=== PATIENT | female | born 1965 | race Two or more races ===

== ENCOUNTER 2018-08-31 09:30 | Day surgery (SDC) | payer OTHER | END 2018-08-31 16:09 | disposition home or self-care (01) | LOC: AMB-ENDOS 09:30 | DX: R19.4 Change in bowel habit (principal); Z12.11 Encounter for screening for malignant neoplasm of colon ==

== ENCOUNTER 2018-08-31 09:32 | Inpatient (IN) | payer OTHER ==
[~2018-08-31] VITALS: Ht 170.2 cm; Wt 71.2 kg
[2018-09-03] MEDS ORDERED: ULTRAM50 MG PO (10:19)
[2018-09-03] MEDS ORDERED: COLACE100 MG PO (10:20)
== END 2018-09-03 10:55 | DRG 743 ==
LOC: O/R 09-02 05:25 → SURH 09-02 09:45 → SURG-SUITE 09-02 10:21 → SURH 09-02 13:00 → SURG-SUITE 09-03 10:55
PROVIDERS: ADMIT Obstetrics & Gynecology
PROC: 0UT24ZZ Resection of Bilateral Ovaries, Percutaneous Endoscopic Approach (ICD-10-PCS; 2018-09-02)
PROC: 0UT74ZZ Resection of Bilateral Fallopian Tubes, Percutaneous Endoscopic Approach (ICD-10-PCS; 2018-09-02)
PROC: 0USG4ZZ Reposition Vagina, Percutaneous Endoscopic Approach (ICD-10-PCS; 2018-09-02)
PROC: 0UT94ZZ Resection of Uterus, Percutaneous Endoscopic Approach (ICD-10-PCS; principal; 2018-09-02 09:45)
DX: D25.1 Intramural leiomyoma of uterus (principal); D25.0 Submucous leiomyoma of uterus; D25.2 Subserosal leiomyoma of uterus

== ENCOUNTER 2019-02-23 10:44 | Outpatient (CLI) | payer OTHER ==
[~2019-02-23 10:44] MED LIST: COLACE100 MG PO; ULTRAM50 MG PO
== END 2019-02-23 10:54 | disposition home or self-care (01) ==
LOC: MAMO-SONO 10:44
DX: N64.4 Mastodynia (principal); Z12.31 Encounter for screening mammogram for malignant neoplasm of breast

== ENCOUNTER 2019-03-14 12:02 | Outpatient (CLI) | payer OTHER | END 2019-03-14 15:41 | disposition home or self-care (01) | LOC: SONOGRAMA 12:02 | DX: N63.13 Unspecified lump in the right breast, lower outer quadrant (principal); N63.31 Unspecified lump in axillary tail of the right breast; N60.11 Diffuse cystic mastopathy of right breast; N60.12 Diffuse cystic mastopathy of left breast ==

== ENCOUNTER 2019-09-16 05:46 | Inpatient (IN) | payer OTHER ==
[~2019-09-16] VITALS: Ht 170.2 cm; Wt 75.3 kg
== END 2019-09-17 12:48 | disposition home or self-care (01) | DRG 583 ==
LOC: CIR.AMB 05:46 → O/R 12:20 → SURH 13:26
PROVIDERS: ADMIT Surgery
PROC: 0HBT0ZZ Excision of Right Breast, Open Approach (ICD-10-PCS; principal; 2019-09-16 07:00)
DX: C50.811 Malignant neoplasm of overlapping sites of right female breast (principal)

== ENCOUNTER → 2019-11-18 | Outpatient (CLI) | payer OTHER | END | disposition home or self-care (01) | LOC: NUCLEAR 11-17 08:00 | DX: C50.811 Malignant neoplasm of overlapping sites of right female breast (principal); R22.31 Localized swelling, mass and lump, right upper limb ==

== ENCOUNTER 2020-01-04 10:59 | Outpatient (CLI) | payer OTHER | END 2020-01-04 11:02 | disposition home or self-care (01) | LOC: NUCLEAR 10:59 | PROVIDERS: ATTEND Internal Medicine | DX: C50.811 Malignant neoplasm of overlapping sites of right female breast (principal); Z51.81 Encounter for therapeutic drug level monitoring ==

== ENCOUNTER 2020-02-01 13:16 | Outpatient (CLI) | payer OTHER | END 2020-02-01 13:27 | disposition home or self-care (01) | LOC: NUCLEAR 13:16 | PROVIDERS: ATTEND Internal Medicine | DX: M81.0 Age-related osteoporosis without current pathological fracture (principal) ==

== ENCOUNTER 2020-02-28 13:22 | Outpatient (CLI) | payer OTHER | END 2020-02-28 13:35 | disposition home or self-care (01) | LOC: RAD 13:22 | PROVIDERS: ATTEND Surgery | DX: R10.84 Generalized abdominal pain (principal) ==

== ENCOUNTER 2020-03-01 07:13 | Outpatient (CLI) | payer OTHER | END 2020-03-01 07:19 | disposition home or self-care (01) | LOC: SONOGRAMA 07:13 → MAMO-SONO 07:15 → SONOGRAMA 07:19 | PROVIDERS: ATTEND Surgery | DX: R10.84 Generalized abdominal pain (principal) ==

== ENCOUNTER 2020-03-09 07:55 | Outpatient (CLI) | payer OTHER | END 2020-03-09 08:22 | disposition home or self-care (01) | LOC: TOM 07:55 | PROVIDERS: ATTEND Internal Medicine | DX: C50.811 Malignant neoplasm of overlapping sites of right female breast (principal) ==

== ENCOUNTER 2020-03-20 07:26 | Outpatient (CLI) | payer OTHER | END 2020-03-20 07:47 | disposition home or self-care (01) | LOC: MAMO-SONO 07:26 | DX: M25.561 Pain in right knee (principal); Z12.31 Encounter for screening mammogram for malignant neoplasm of breast; C50.311 Malignant neoplasm of lower-inner quadrant of right female breast ==

== ENCOUNTER 2020-03-20 08:02 | Outpatient (CLI) | payer OTHER | END 2020-03-20 09:29 | disposition home or self-care (01) | LOC: NUCLEAR 08:02 | PROVIDERS: ATTEND Internal Medicine | DX: C50.811 Malignant neoplasm of overlapping sites of right female breast (principal) | CPT/HCPCS: 78803; A9503 ==

== ENCOUNTER 2020-05-10 11:04 | Outpatient (CLI) | payer OTHER | END 2020-05-10 11:24 | disposition home or self-care (01) | LOC: NUCLEAR 11:04 | PROVIDERS: ATTEND Internal Medicine | DX: C50.811 Malignant neoplasm of overlapping sites of right female breast (principal) ==

== ENCOUNTER 2020-09-06 07:09 | Outpatient (CLI) | payer OTHER | END 2020-09-06 07:14 | disposition home or self-care (01) | LOC: MAMO-SONO 07:09 → TOM 07:15 → MAMO-SONO 07:15 | PROVIDERS: ATTEND Internal Medicine | DX: R92.2 Inconclusive mammogram (principal); N64.59 Other signs and symptoms in breast; R91.1 Solitary pulmonary nodule; K80.80 Other cholelithiasis without obstruction; C50.811 Malignant neoplasm of overlapping sites of right female breast ==

== ENCOUNTER 2021-02-27 07:43 | Outpatient (CLI) | payer OTHER | END 2021-02-27 08:00 | disposition home or self-care (01) | LOC: TOM 07:43 → MAMO-SONO 08:15 | PROVIDERS: ATTEND Surgery | DX: K80.80 Other cholelithiasis without obstruction (principal); C50.411 Malignant neoplasm of upper-outer quadrant of right female breast; N60.11 Diffuse cystic mastopathy of right breast; N60.12 Diffuse cystic mastopathy of left breast; R91.1 Solitary pulmonary nodule ==

== ENCOUNTER 2021-03-13 07:25 | Outpatient (CLI) | payer OTHER | END 2021-03-13 07:43 | disposition home or self-care (01) | LOC: RAD 07:25 | DX: M25.512 Pain in left shoulder (principal); M25.511 Pain in right shoulder; M54.2 Cervicalgia; M25.552 Pain in left hip; M25.551 Pain in right hip ==

== ENCOUNTER 2021-04-02 12:51 | Outpatient (CLI) | payer OTHER | END 2021-04-02 13:08 | disposition home or self-care (01) | LOC: MAMO-SONO 12:51 | DX: R92.2 Inconclusive mammogram (principal); C50.811 Malignant neoplasm of overlapping sites of right female breast ==

== ENCOUNTER 2022-06-11 13:24 | Outpatient (CLI) | payer OTHER | END 2022-06-11 13:41 | disposition home or self-care (01) | LOC: MAMO-SONO 13:24 | PROVIDERS: ATTEND Internal Medicine | DX: C50.811 Malignant neoplasm of overlapping sites of right female breast (principal) ==

== ENCOUNTER 2022-08-08 13:22 | Outpatient (CLI) | payer OTHER | END 2022-08-08 13:23 | disposition home or self-care (01) | LOC: NUCLEAR 13:22 | PROVIDERS: ATTEND Internal Medicine | DX: M85.80 Other specified disorders of bone density and structure, unspecified site (principal) ==

== ENCOUNTER 2023-08-03 12:30 | Outpatient (CLI) | payer OTHER | END 2023-08-03 12:34 | disposition home or self-care (01) | LOC: TOM 12:30 | DX: M25.551 Pain in right hip (principal); M25.552 Pain in left hip ==

== ENCOUNTER 2023-09-03 12:10 | Outpatient (CLI) | payer OTHER | END 2023-09-03 12:26 | disposition home or self-care (01) | LOC: MAMO-SONO 12:10 | PROVIDERS: ATTEND Internal Medicine | DX: C50.811 Malignant neoplasm of overlapping sites of right female breast (principal) ==

== ENCOUNTER → 2024-10-24 | Outpatient (CLI) | payer OTHER | END | disposition home or self-care (01) | LOC: MAMO-SONO 11:43 | PROVIDERS: ATTEND Internal Medicine | DX: C50.811 Malignant neoplasm of overlapping sites of right female breast (principal) ==